=== PATIENT | male | born 2000 | race Caucasian/White ===

== ENCOUNTER 2021-05-16 13:41 | Day surgery (SDC) | payer OTHER ==
[~2021-05-16] VITALS: Ht 188 cm; Wt 60.4 kg
[2021-05-16 14:31] VITALS: BP 121/69; PULSE 70; TEMP 98.1
[2021-05-16 17:00] VITALS: BP 119/72; PULSE 72
--- NOTE | 2021-05-16 17:00 | NUR ---
Patient returns to room 5 per cart from surgery accompanied by Gaurav Jimenez CRNA and Finesse RN. Patient arouses to verbal stimuli. IV fluids infusing. Siderails up x2 and call light in reach. Allowed to rest.
[2021-05-16 17:15] VITALS: BP 111/90; PULSE 72
--- NOTE | 2021-05-16 17:15 | NUR ---
More awake and is drinking water.
[2021-05-16 17:30] VITALS: BP 107/68; PULSE 78
--- NOTE | 2021-05-16 17:30 | NUR ---
Complains of pain to left side and medicated with Roxicodone 5mg tab. Eating crackers.
[2021-05-16 17:45] VITALS: BP 121/85; PULSE 86
--- NOTE | 2021-05-16 17:45 | NUR ---
Patient assisted up to the bathroom and gait is steady. Given call light.
--- NOTE | 2021-05-16 17:53 | NUR ---
Returns to room and is eating muffin and drinking Pepsi. States that the pain is less and denies nausea.
--- NOTE | 2021-05-16 18:10 | NUR ---
Patient dressed. INT needle discontinued and site is free of redness. Dismissal instructions signed. Patient dismissed to home driven by co worker and assisted into vehicle with instructions in hand.
== END 2021-05-16 18:10 | disposition home or self-care (01) ==
LOC: SDCO 13:41
DX: N13.2 Hydronephrosis with renal and ureteral calculous obstruction (principal); F17.290 Nicotine dependence, other tobacco product, uncomplicated; Z20.822 Contact with and (suspected) exposure to COVID-19
CPT/HCPCS: J0690; J2704; J3010; J7120